=== PATIENT | male | born 1960 | race Caucasian/White ===

== ENCOUNTER 2018-08-27 12:37 | Emergency (ER) | payer MEDICARE | END 2018-08-27 13:20 | disposition home or self-care (01) | LOC: MADERS 12:37 | DX: J06.9 Acute upper respiratory infection, unspecified (principal); F17.210 Nicotine dependence, cigarettes, uncomplicated | CPT/HCPCS: 99283 ==

== ENCOUNTER 2019-01-15 14:09 | Emergency (ER) | payer MEDICARE ==
[~2019-01-15 14:09] MED LIST: Ibuprofen 800 MG TAB ONE
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
== END 2019-01-15 18:00 | disposition home or self-care (01) ==
LOC: MADERS 14:09
DX: S60.221A Contusion of right hand, initial encounter (principal); F17.210 Nicotine dependence, cigarettes, uncomplicated; J44.9 Chronic obstructive pulmonary disease, unspecified; W22.8XXA Striking against or struck by other objects, initial encounter

== ENCOUNTER 2021-04-22 14:47 | Outpatient (CLI) | payer MEDICARE | END 2021-04-22 14:48 | disposition home or self-care (01) | LOC: MADRAD 14:47 | PROVIDERS: ATTEND Family Medicine | DX: J11.1 Influenza due to unidentified influenza virus with other respiratory manifestations (principal); R91.8 Other nonspecific abnormal finding of lung field | CPT/HCPCS: 71046 ==

== ENCOUNTER 2021-05-05 14:21 | Outpatient (CLI) | payer MEDICARE | END 2021-05-05 14:22 | disposition home or self-care (01) | LOC: MADRAD 14:21 | PROVIDERS: ATTEND Family Medicine | DX: J18.9 Pneumonia, unspecified organism (principal); R91.8 Other nonspecific abnormal finding of lung field | CPT/HCPCS: 71046 ==

== ENCOUNTER 2022-02-04 08:54 | Emergency (ER) | payer MEDICARE ==
[2022-02-04] MEDS ORDERED: predniSONE 20 MG TAB ONE (09:13)
[2022-02-04] MEDS ORDERED: predniSONE 10 MG TAB ONE (09:13)
== END 2022-02-04 09:46 | disposition home or self-care (01) ==
LOC: MADERS 08:54
DX: J44.1 Chronic obstructive pulmonary disease with (acute) exacerbation (principal); F17.210 Nicotine dependence, cigarettes, uncomplicated; Z79.899 Other long term (current) drug therapy
CPT/HCPCS: 71045; 93005; J7512; J7620

== ENCOUNTER 2023-02-22 12:46 | Emergency (ER) | payer MEDICARE ==
[2023-02-22] MEDS ORDERED: Ipratropium/Albuterol 3 ML NEB ONE ×2 (13:17→15:26)
[2023-02-22] MEDS ORDERED: Magnesium 2 GM/50 ML BAG (IN WATER) ONE (13:18)
[2023-02-22 13:26] LABS: #Basophils 0.1 thou/uL (0.0-0.2); #Eosinphils 0.1 thou/uL (0.0-0.7); #Lymphocytes 1.8 thou/uL (1.20-3.40); #Monocytes 0.7 thou/uL (0.11-0.59); #Neutrophils 11.3 thou/uL (1.40-6.50); %Basophils 0.8 % (0.0-1.0); %Eosinophils 0.4 % (0.0-10.0); %Lymphocytes 13.1 % (21.0-51.0); %Monocytes 4.8 % (0.0-10.0); %Neutrophils 80.8 % (42.0-75.0); Hematocrit 37.7 % (42.0-52.0); Hemoglobin 11.6 g/dL (14.0-18.0); Mean Corpuscular HGB CONC 30.7 g/dL (32.0-36.0); Mean Corpuscular Hemoglobin 31.5 pg (27.0-31.0); Mean Corpuscular Volume 102.7 fl (78.0-98.0); Mean Platelet Volume 7.2 fL (7.4-10.4); Platelet Count 682 10x3/uL (130-400); RBC Distribution Width 14.8 % (11.5-14.5); Red Blood Cell (RBC) Count 3.67 mill/uL (4.70-6.10)
[2023-02-22 13:32] LABS: Base Excess-Venous 1.6 mmol/L (-2.0 to 3.0); CO2 Tension (PvCO2) 50.1 mmHg (42.0-51.0); Calcium, Ionized 1.13 mmol/L (1.15-1.33); Chloride 108 mmol/L (98-107); Hemoglobin - Calc 13.7 g/dL (14.0-18.0); Potassium 3.7 mmol/L (3.5-5.1); Sodium 142 mmol/L (138-145); T. Carbon Dioxide 29.5 mmol/L (22.0-28.0); vO2 Saturation-calc 74.4 % (60.0-85.0)
[2023-02-22 13:38] LABS: ALT (SGPT) 12 U/L (8-55); AST (SGOT) 14 U/L (5-34); Albumin 3.2 g/dL (3.4-4.8); Alkaline Phosphatase 100 U/L (40-110); Anion Gap 13 mmol/L (10-20); BUN (Urea Nitrogen) 16 mg/dL (8.4-25.7); Bilirubin, Total 0.3 mg/dL (0.2-1.2); Calc. Creatinine Clearance 0 mL/min (70-130); Calcium 9.1 mg/dL (7.8-10.44); Carbon Dioxide 28 mmol/L (23-31); Chloride 104 mmol/L (98-107); Estimated GFR 106; Globulin 4.4 g/dL (2.4-3.5); Glucose 119 mg/dL (80-115); Magnesium 1.9 mg/dL (1.6-2.6); Potassium 3.7 mmol/L (3.5-5.1); Protein, Total 7.6 g/dL (5.8-8.1); Sodium 141 mmol/L (136-145)
[2023-02-22 13:42] LABS: Troponin I Less than 0.010 ng/mL (< 0.028)
[2023-02-22] MEDS ORDERED: Sodium Chloride 0.9% 250 ML 250 ML ONE (13:52)
[2023-02-22] MEDS ORDERED: Cefepime 2 GM VIAL ONE (13:52)
[2023-02-22] MEDS ORDERED: Sulfameth/Trimethoprim DS 800-160mg TAB ONE (13:52)
[2023-02-22] MEDS ORDERED: Vancomycin 1 GM VIAL ONE (13:52)
[2023-02-22] MEDS ORDERED: Sodium Chloride 0.9% 100 ML ONE (13:52)
[2023-02-22 14:18] LABS: SARS-CoV-2 NAA Rapid Test Not Detected (NotDetected)
== END 2023-02-22 17:58 | disposition short-term general hospital (02) ==
LOC: MADERS 12:46
DX: A41.9 Sepsis, unspecified organism (principal); J18.0 Bronchopneumonia, unspecified organism; J96.00 Acute respiratory failure, unspecified whether with hypoxia or hypercapnia; B20 Human immunodeficiency virus [HIV] disease; J44.1 Chronic obstructive pulmonary disease with (acute) exacerbation; F17.210 Nicotine dependence, cigarettes, uncomplicated; Z79.51 Long term (current) use of inhaled steroids
CPT/HCPCS: 0240U; 71045; 71275; 80053; 82330; 82435; 82803; 83605; 83735; 83880; 84132; 84295; 84484; 85014; 85025; 87040; 93005; 96365; 96367; 99285; 36415; J0692; J3370; J3475; J3490; J7050; J7620